=== PATIENT | female | born 1985 | race Asian ===

== ENCOUNTER 2016-10-01 22:43 | Emergency (ER) | payer OTHER ==
--- NOTE | 2016-10-01 23:47 | ED Physician Documentation ---
PD HPI FEMALE - Stated complaint Stated Complaint: FEMALE /12 WKS PREG - Chief complaint Chief Complaint: Abd Pain - History obtained from History obtained from: Patient - History of Present Illness Timing - onset: Today Timing - details: Gradual onset Pain level max: 1 (pelvic cramping) Associated symptoms: Vaginal bleeding. 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 She describes the bleeding as dark brown, and it is accompanied by very mild pelvic cramping. She had first trimester bleeding in her first without subsequent complications. Review of Systems Constitutional: reports: Reviewed and negative GI: reports: Reviewed and negative : denies: Dysuria, Frequency PD PAST MEDICAL HISTORY - Past Medical History Past Medical History: Yes Cardiovascular: None Respiratory: Asthma Neuro: None Endocrine/Autoimmune: None GI: None PANEL FITTER: None : None HEENT: None Psych: None Musculoskeletal: None Derm: None - Past Surgical History Past Surgical History: No - Present Medications Home Medications: Ambulatory Orders Medication Instructions Recorded Confirmed Cetirizine HCl/Pseudoephedrine 10/01/16 [Zyrtec-D Tablet] Fluticasone [Flonase] 10/01/16 Fluticasone/Salmeterol [Advair 10/01/16 250-50 Diskus] Prenatl Vit6/Iron/FA/B12/Ca/D3 10/01/16 [Mteryti Combo Pack] - Allergies Allergies/Adverse Reactions: Allergies Allergy/AdvReac Type Severity Reaction Status Date / Time No Known Drug Allergies Allergy Verified 10/01/16 23:01 - Social History Does the pt smoke?: No Smoking Status: Never smoker Does the pt drink ETOH?: No Does the pt have substance abuse?: No - Immunizations Immunizations are current?: Yes - POLST Patient has POLST: No PD ED PE NORMAL - Vitals Vital signs reviewed: Yes - General General: Alert and oriented X 3, No acute distress, Well developed/nourished - Cardiac Cardiac: RRR, No murmur - Respiratory Respiratory: No respiratory distress, Clear bilaterally - Abdomen Abdomen: Soft, Non tender, Non distended - Back Back: No CVA TTP Results - Vitals Vitals: Vital Signs - 24 hr 10/02/16 03:26 Temperature 36.7 C Heart Rate 69 Respiratory 14 Rate Blood Pressure 92/56 L O2 Saturation 98 Oxygen O2 Source Room air - Labs Labs: Laboratory Tests 10/01/16 10/02/16 23:15 02:15 Urine Color YELLOW Urine Clarity CLEAR Urine pH 6.0 Ur Specific [place] 1.025 Urine Protein NEGATIVE Urine Glucose (UA) NEGATIVE Urine Ketones TRACE Urine Occult Blood NEGATIVE Urine Nitrite NEGATIVE Urine Bilirubin NEGATIVE Urine Urobilinogen 0.2 (NORMAL) Ur Leukocyte Esterase NEGATIVE Ur Microscopic Review NOT INDICATED Urine Culture Comments NOT INDICATED Blood Type B POSITIVE - Rads (name of study) pelvic US Radiology: Prelim report reviewed, See rad report PD MEDICAL DECISION MAKING - ED course Complexity details: reviewed results, re-evaluated patient, considered differential, d/w patient Departure - Departure Disposition: 01 Home, Self Care Clinical Impression: Vaginal bleeding in Condition: Good Instructions: ED Miscarriage Poss Follow-Up: DEEPIKA Lo [Provider Group] Discharge Date/Time: 10/02/16 03:37
[2016-10-01 23:53] LABS: BILIRUBIN,URINE NEGATIVE (NEGATIVE); UA CHARGE (STRIP ONLY) YES; UR CULTURE IF IND NOT INDICATED
--- NOTE | 2016-10-02 02:12 | Ultrasound Preliminary Report ---
Exam: US OB First Trimester IMPRESSION: Single live intrauterine at 13 weeks 3 days by crown-rump length -- for an zayra mated delivery date of 04/06/2017. Follow-up suggested at the second trimester 1822 week anatomy loy [facility]ACON SITE ID: [id number]
--- NOTE | 2016-10-02 02:14 | Ultrasound Report ---
REVISED: THIS REPORT WAS ORIGINALLY SIGNED ON 10/02/2016 @ 0214. ORDERS LINKED ON 11/08/2016. EXAM: FIRST TRIMESTER OBSTETRIC ULTRASOUND (Less than 11 weeks) EXAM DATE: 10/02/2016 01:54 AM. CLINICAL HISTORY: , vaginal bleeding. LMP: Unknown. COMPARISONS: None. TECHNIQUE: Transabdominal ultrasound examination with static image documentation. FINDINGS: Gestational Sac: An intrauterine fluid-filled sac contains both an embryo and yolk sac. Embryo: CRL (crown-rump length) measures 73 mm corresponding to an estimated gestational age of 13 weeks 3 days. Heart Rate: 154 Beats per minute. Placenta: Appears to be forming anteriorly at the fundus. Uterus: Unremarkable anteverted appearance. Right Ovary: Volume 6 cc. Normal echotexture and blood flow. Left Ovary: Volume 3 cc. Normal echotexture and blood flow. Free Fluid: None. Other: None. IMPRESSION: Single live intrauterine at 13 weeks 3 days by crown-rump length -- for an estimated delivery date of 04/06/2017. Follow-up suggested at the second trimester 1822 week anatomy scan. [facility] Referring Provider Line: [phone] SITE ID: [id number]
[2016-10-02 03:27] VITALS: BP 92/56
== END 2016-10-02 03:37 | disposition home or self-care (01) ==
LOC: ED 22:43
DX: O46.91 Antepartum hemorrhage, unspecified, first trimester (principal); Z3A.12 12 weeks gestation of pregnancy; O99.511 Diseases of the respiratory system complicating pregnancy, first trimester; J45.909 Unspecified asthma, uncomplicated
CPT/HCPCS: 36415; 76801; 76817; 81001; 81003; 86900; 86901; 87086; 99283

== ENCOUNTER 2023-07-21 23:49 | Emergency (ER) | payer OTHER ==
[2023-07-22 00:14] VITALS: O2SAT 95
--- NOTE | 2023-07-22 00:23 | ED Physician Documentation ---
History of Present Illness - Stated complaint Stated Complaint: FEVER/BODY ACHES/SORE THROAT - Chief complaint Chief Complaint: Fever - History obtained from History obtained from: Patient - Additonal information Additional information: 38yF with pmh asthma p/w sore throat, nasal congestion, chills, body aches X few days with productive cough. daily smoker. denies cp, soa, n/v. 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 : None HEENT: None Psych: None Musculoskeletal: None Derm: None - Past Surgical History Past Surgical History: Yes - Present Medications Home Medications: Ambulatory Orders Medication Instructions Recorded Confirmed Cetirizine HCl/Pseudoephedrine 1 tab PO BID 10/01/16 07/22/23 [Zyrtec-D Tablet] Fluticasone [Flonase] 1 spray DEEPIKA DAILY 10/01/16 07/22/23 Fluticasone/Salmeterol [Advair 1 inh INH DAILY 10/01/16 07/22/23 250-50 Diskus] Prenatl Vit6/Iron/FA/B12/Ca/D3 10/01/16 [Mteryti Combo Pack] - Allergies Allergies/Adverse Reactions: Allergies Allergy/AdvReac Type Severity Reaction Status Date / Time No Known Drug Allergies Allergy Verified 07/22/23 00:05 - Social History Does the pt smoke?: No Smoking Status: Never smoker Does the pt drink ETOH?: No Does the pt have substance abuse?: No - Immunizations Immunizations are current?: Yes - POLST Patient has POLST: No PD ED PE NORMAL - Vitals Vital signs reviewed: Yes - General General: Alert and oriented X 3, No acute distress, Well developed/nourished - HEENT HEENT: Atraumatic, PERRL, EOMI, Ears normal, Moist mucous membranes, Pharynx benign, Other (mild oropharyngeal erythema) - Neck Neck: Supple, no meningeal sign - Cardiac Cardiac: RRR - Respiratory Respiratory: No respiratory distress, Clear bilaterally Results - Vitals Vitals: Vital Signs - 24 hr 07/22/23 00:02 Temperature 36.8 C Heart Rate 95 Respiratory 18 Rate Blood Pressure 132/69 H O2 Saturation 95 Oxygen O2 Source Room air - Labs Labs: Laboratory Tests 07/22/23 00:19 Group A Strep Rapid Negative PD Medical Decision Making - ED course ED course: 38yF p/w viral uri symptoms X 3 days. rvp and strep swab sent. strep negative. she can f/u rvp results on patient health portal and see her pcm for follow up. return precautions given. Departure - Departure Disposition: Home, Self Care Clinical Impression: Sore throat Condition: Stable Instructions: Sore Throat Comments: You were seen in the emergency department for medical evaluation. Your strep test was negative. A strep culture was sent and we will contact you if it is positive. You can also view the results on your patient health portal as well as the results of your virus nose swab. Please follow-up with your primary care provider and return to the emergency department if you have any new or worsening symptoms or other concerns. Forms: PCP List
[2023-07-22 00:34] LABS: RAPID STREP SCREEN Negative (Negative)
[2023-07-22] MEDS: DEXAMETHASONE 10 MG/ML VIAL PO STA (00:58)
[2023-07-22] MEDS: CHERRY SYRUP 10 ML UDC PO ONE (00:58)
[2023-07-22 01:06] LABS: B. PARAPERTUSSIS- RESP PCR PAN NOT DETECTED; B. PERTUSSIS- RESP PCR PANEL NOT DETECTED; C. PNEUMONIAE- RESP PCR PANEL NOT DETECTED; CORONAVIRUS 229E-RESP PCR NOT DETECTED; CORONAVIRUS HKU1-RESP PCR NOT DETECTED; CORONAVIRUS NL63-RESP PCR NOT DETECTED; CORONAVIRUS OC43-RESP PCR NOT DETECTED; HUMAN METAPNEUMOVIRUS NOT DETECTED; INFLUENZA A- RESP PCR PANEL NOT DETECTED; INFLUENZA B - RESP PCR PANEL NOT DETECTED; M. PNEUMONIAE- RESP PCR PANEL NOT DETECTED; PARAINFLUENZA VIRUS 1 NOT DETECTED; PARAINFLUENZA VIRUS 2 NOT DETECTED; PARAINFLUENZA VIRUS 3 NOT DETECTED; PARAINFLUENZA VIRUS 4 NOT DETECTED; RHINOVIRUS/ENTEROVIRUS NOT DETECTED; RSV- RESP PCR PANEL NOT DETECTED; SARS-CoV-2 -RESP PCR PANEL NOT DETECTED
[2023-07-22 01:07] VITALS: BP 109/80
== END 2023-07-22 01:04 | disposition home or self-care (01) ==
LOC: ED 23:49
DX: J02.9 Acute pharyngitis, unspecified (principal); J45.909 Unspecified asthma, uncomplicated
CPT/HCPCS: 87070; 87430; 87633; 99283; A9270